=== PATIENT | female | born 1995 | race African-American/Black ===

== ENCOUNTER 2019-03-08 19:52 | Emergency (ER) | payer MEDICAID ==
[~2019-03-08] VITALS: Ht 170.2 cm; Wt 73.8 kg
[2019-03-08 19:58] VITALS: Ht 170.2 cm; Wt 73.8 kg
[2019-03-08] MEDS ORDERED: ACETAMINOPHEN 500 MG TAB PO STA (22:57)
--- NOTE | 2019-03-08 22:57 | ERD ---
ER Documentation Chief Complaint Chief Complaint CP/AP x1 day w/ SOB, 9 wks HPI This is a 24-year-old female who presents emergency department with complaints of chest pain, shortness of breath, lower abdominal pain for about a day. She is 9 weeks . LMP: 01/03/2019. . KATHLEEN: 11/09/2019. Denies headache, head injury, loss of consciousness, dizziness, neck pain, neck stiffness, throat pain, difficulty swallowing, difficulty breathing lying flat, shoulder pain, chest pain, back pain, abdominal pain, nausea, vomiting, constipation, diarrhea, urinary symptoms, loss of bowel and bladder control, trauma, injury, falls, difficulty walking due to pain, numbness or tingling sensation, calf pain, recent travel, recent major surgery in the last 3 weeks, calf pain, recent long travel, recent exposure to any illness, recent antibiotic use in the last 3 months, fever, chills, seizures. Past medical history: Surgical history: Social: Denies smoking, use of alcoholic beverages, use of illegal drugs. ROS All systems reviewed and are negative except as per history of present illness. Medications Home Meds Active Scripts Cephalexin* (Keflex*) 500 Mg Capsule, 500 MG PO TID for 7 Days, CAP Prov:PASILABAN,KLAR F 03/09/19 Acetaminophen* (Tylophen*) 500 Mg Capsule, 1 CAP PO Q6H PRN for PAIN AND OR ELEVATED TEMP, #20 CAP Prov:PASILABAN,KLAR F 03/09/19 Allergies Allergies: Coded Allergies: No Known Allergy (Unverified , 03/08/19) Physical Exam Vitals Vital Signs Date Temp Pulse Resp B/P (MAP) Pulse Ox O2 O2 Flow FiO2 Time Delivery Rate 03/09/19 98.2 85 16 125/78 98 Room Air 01:58 (94) 03/08/19 97.2 89 17 148/86 100 19:58 (106) Physical Exam Const: No acute distress Head: Atraumatic Eyes: Normal Conjunctiva ENT: Normal External Ears, Nose and Mouth. Neck: Full range of motion. No meningismus. Resp: Clear to auscultation bilaterally. Chest area: No vesicular lesions. Cardio: Regular rate and rhythm, no murmurs Abd: Soft, non tender, non distended. Normal bowel sounds. Negative Mercedes sign. Negative [place] sign (heel jar test). Negative psoas sign. Negative Rovsing sign. No CVA tenderness. Ambulatory with steady gait and without pain. Skin: No petechiae or rashes. Color appears normal for ethnicity. No skin tenting. No signs of severe dehydration. Back: No midline or flank tenderness Ext: No cyanosis, or edema. No calf tenderness bilaterally. Neur: Awake and alert. No neurological deficits. Psych: Normal Mood and Affect Result Diagram: 03/08/19 2347 03/08/197 Results 24 hrs Laboratory Tests Test 03/08/19 23:47 03/08/19 23:50 White Blood Count 12.1 10^3/ul Red Blood Count 4.67 10^6/ul Hemoglobin 13.2 g/dl Hematocrit 39.6 % Mean Corpuscular Volume 84.8 fl Mean Corpuscular Hemoglobin 28.3 pg Mean Corpuscular Hemoglobin Concent 33.3 g/dl Red Cell Distribution Width 12.3 % Platelet Count 286 10^3/UL Mean Platelet Volume 9.5 fl Immature Granulocytes % 0.200 % Neutrophils % 71.6 % Lymphocytes % 20.7 % Monocytes % 6.3 % Eosinophils % 0.7 % Basophils % 0.5 % Nucleated Red Blood Cells % 0.0 /100WBC Immature Granulocytes # 0.030 10^3/ul Neutrophils # 8.6 10^3/ul Lymphocytes # 2.5 10^3/ul Monocytes # 0.8 10^3/ul Eosinophils # 0.1 10^3/ul Basophils # 0.1 10^3/ul Nucleated Red Blood Cells # 0.0 10^3/ul Prothrombin Time 13.5 Sec Prothrombin Time Ratio 1.1 INR International Normalized Ratio 1.02 Activated Partial Thromboplast Time 32.3 Sec Sodium Level 139 mmol/L Potassium Level 3.6 mmol/L Chloride Level 102 mmol/L Carbon Dioxide Level 24 mmol/L Anion Gap 13 Blood Urea Nitrogen 8 mg/dl Creatinine 0.50 mg/dl Est Glomerular Filtrat Rate mL/min > 60 mL/min Glucose Level 101 mg/dl Calcium Level 10.5 mg/dl Total Bilirubin 0.2 mg/dl Direct Bilirubin 0.00 mg/dl Indirect Bilirubin 0.2 mg/dl Aspartate Amino Transf (AST/SGOT) 17 IU/L Alanine Aminotransferase (ALT/SGPT) 16 IU/L Alkaline Phosphatase 73 IU/L Troponin I < 0.012 ng/ml Total Protein 8.0 g/dl Albumin 4.7 g/dl Globulin 3.30 g/dl Albumin/Globulin Ratio 1.42 Lipase 51 U/L Beta HCG, Quantitative 00428.0 mIU/ml Urine Color YELLOW Urine Clarity CLOUDY Urine pH 5.0 Urine Specific [place] 1.020 Urine Ketones TRACE mg/dL Urine Nitrite NEGATIVE mg/dL Urine Bilirubin NEGATIVE mg/dL Urine Urobilinogen NEGATIVE mg/dL Urine Leukocyte Esterase 2+ Gilma/ul Urine Microscopic RBC 11 /HPF Urine Microscopic WBC 32 /HPF Urine Squamous Epithelial Cells FEW /HPF Urine Bacteria FEW /HPF Urine Mucus MODERATE /HPF Urine Hemoglobin NEGATIVE mg/dL Urine Glucose NEGATIVE mg/dL Urine Total Protein NEGATIVE mg/dl Current Medications Medications Dose Sig/Andrzej Start Time Status Last (Trade) Ordered Route PRN Stop Time Admin Dose Reason Admin 500 mg ONCE STAT 03/08/19 DC 03/08/19 Acetaminophen PO 22:57 23:23 (Tylenol 03/08/19 23:00 Tab) Procedures/MDM Diagnostic tests: EKG: Normal sinus rhythm with a ventricular rate of 83 bpm. No STEMI. Read by my supervising physician. HCG quantitative: 97258.0. Type and Rh: O-. Troponin: Negative. Blood works: Reviewed. OB ultrasound: Single live intrauterine with an estimated gestational age of 7 weeks 1 day based on ultrasound measurement. Treatment: Tylenol p.o. Re-evaluation: Denies chest pain. Denies vaginal bleeding. Differential diagnosis I have low suspicion for acute microinfarction, acute coronary syndrome, pulmonary embolism, ectopic , hemorrhaging. Final diagnosis: Costochondritis. UTI. Prescription: Tylenol. Keflex. Follow-up with OB in the next 24-48 hours. Come back here in the emergency department for any new symptoms or any worsening symptoms. All questions and concerns were answered. Patient and family members verbalized understanding and agreed with plan of care. Hemodynamically stable on discharge. Departure Diagnosis: Primary Impression: UTI in Additional Impressions: Chest wall pain Anxiety Condition: Stable Additional Instructions: Follow-up with OB in the next 24-48 hours. Come back here in the emergency department for any new symptoms or any worsening symptoms. MAXIM DUNBAR Mar 08, 2019 22:57
[2019-03-09] MEDS ORDERED: CEPH-443 PO (01:43)
[2019-03-09] MEDS ORDERED: ACET500C5 PO (01:43)
[2019-03-09 01:58] VITALS: BP 125/78; PULSE 85; RESP 16
== END 2019-03-09 01:58 | disposition home or self-care (01) ==
LOC: FTE 19:52
DX: O26.891 Other specified pregnancy related conditions, first trimester (principal); O99.89 Other specified diseases and conditions complicating pregnancy, childbirth and the puerperium; O23.41 Unspecified infection of urinary tract in pregnancy, first trimester; R10.30 Lower abdominal pain, unspecified; Z3A.09 9 weeks gestation of pregnancy
CPT/HCPCS: 76801; 76817; 80053; 81001; 83690; 84484; 84702; 85025; 85610; 85730; 86900; 86901; 87086; 93005; Z7502